=== PATIENT | female | born 1975 | race Two or more races ===

== ENCOUNTER 2024-10-24 01:30 | Emergency (ER) | payer MEDICAID ==
[~2024-10-24] VITALS: Ht 152.4 cm; Wt 77.3 kg
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
--- NOTE | 2024-10-24 03:24 | DVH ---
Examination: CS2 CLINICAL INDICATION: neck pain COMPARISON: None. CONTRAST USED: Intravenous. TECHNIQUE: The examination was performed obtaining 2 mm slices in the axial plane. Sagittal and 3D reconstructions were also obtained. Technique for this CT scan was done using principles of ALARA (A s Low As Reasonably Achievable). Multiplanar reconstructions were obtained. FINDINGS: Limited evaluation, due to beam hardening artifacts in the spinal canal at C6, C7 and T1 levels. The alignment of the cervical spine is maintained. Marginal degenerative osteophytes in the cervical vertebrae. Radiolucent area of approximate size 8 x 7 mm noted at the base of the dens process. The posterior elements are unremarkable. There is no fracture or subluxation. No destructive bony lesion is noted. The pre- and para-vertebral soft tissues are unremarkable. Atlanto-axial joint is within normal limits. C2-C3 level: Disc height is within normal limits, with posterocentral disc bulge (thickness up to ap proximately 2 mm) indenting the anterior thecal sac. There is no significant central canal or neural foraminal narrowing. The facet joints and ligamentum flavum are within normal limits. C3-C4 level: Disc height is within normal limits, with posterocentral disc bulge (thickness up to ap proximately 2 mm) indenting the anterior thecal sac. There is no significant central canal or neural foraminal narrowing. The facet joints and ligamentum flavum are within normal limits. C4-C5 level: Disc height is within normal limits, with posterocentral disc bulge (thickness up to ap proximately 2.8 mm) indenting the anterior thecal sac. There is no significant central canal or neur al foraminal narrowing. The facet joints and ligamentum flavum are within normal limits. C5-C6 level: Disc height is reduced, with posterocentral disc bulge (thickness up to approximately 2 .2 mm) indenting the anterior thecal sac. Vertebral osteophytes, causing mild bilateral neural irasema inal narrowing. There is no significant central canal narrowing. The facet joints and ligamentum fl avum are within normal limits. C6-C7 level: Disc height is within normal limits. The spinal canal cannot be commented upon, due to beam hardening artifacts within. The facet joints are within normal limits. C7-T1 level: Disc height is within normal limits. The spinal canal cannot be commented upon, due to beam hardening artifacts within. The facet joints are within normal limits. Note that detection of disc herniations is limited with CT, for which an MRI may be obtained if clini devonte indicated. IMPRESSION: 1. Limited evaluation, due to beam hardening artifacts in the spinal canal at C6, C7 and T1 levels. 2. No obvious fracture or dislocation in the cervical spine. 3. Mild cervical spondylosis, as described. 4. Radiolucent area of approximate size 8 x 7 mm noted at the base of the dens process. Advised fur ther evaluation with MRI cervical spine without contrast. Electronically Signed 10/24/2024 03:23 Juliette Faria
--- NOTE | 2024-10-24 03:24 | DVH ---
Examination: FAC2C CLINICAL INDICATION: facial injury COMPARISON: None. CONTRAST USED: None. TECHNIQUE: The examination was performed obtaining 2 mm slices in the axial plane. Sagittal and 3D r econstructions were also obtained. Technique for this CT scan was done using principles of ALARA (As Low As Reasonably Achievable). Multiplanar reconstructions were obtained. FINDINGS: Fracture of nasal bone bilaterally with adjacent soft tissue hematoma. Subcutaneous fat stranding noted in the right maxillary region. Both zygomatic arches appear normal without any fracture. All visualized paranasal sinuses show normal intact lawler. No evidence of any obvious collection seen within the paranasal sinuses. Subcentimetric mucous retention cyst noted in the right maxillary sinus. Bony nasal septum shows no evidence of fracture. Deviated nasal septum along with bony septal spur with convexity towards right. Mandible and maxillary alveolus show no evidence of fracture. Both orbits are normal. Orbital lawler are intact. Dental prostheses noted giving adjacent streak artifacts. IMPRESSION: 1. Fracture of nasal bone bilaterally with adjacent soft tissue hematoma. 2. Subcutaneous fat stranding noted in the right maxillary region. Electronically Signed 10/24/2024 03:23 Juliette Faria
--- NOTE | 2024-10-24 03:24 | DVH ---
Examination: HWOCT CLINICAL INDICATION:head injury COMPARISON: None. CONTRAST USED: None. TECHNIQUE: The examination was performed obtaining 5 mm slices without contrast. CT scan was done a ccording to ALARA (As Low as Reasonably Achievable). Multiplanar reconstructions were obtained. FINDINGS: SUPRATENTORIAL BRAIN: Cerebral Hemispheres: There is no midline shift or mass effect, intra- or extra-axial fluid collecti ons or hemorrhage. Periventricular White Matter/Basal Ganglia: No abnormal areas of altered attenuation within the gloria ventricular white matter or basal ganglia. POSTERIOR FOSSA: The brainstem is normal and the visualized cerebellar hemispheres are unremarkable. VENTRICULAR SYSTEM: The ventricular system is normal in size. There is no evidence of hydrocephalus or transependymal flow of cerebrospinal fluid. SKULL BASE AND PARASELLAR REGION: The skull base is normal with no parasellar masses or abnormalitie s identified. CALVARIUM AND SCALP REGION: Fracture of nasal bone bilaterally with adjacent soft tissue hematoma. PARANASAL SINUSES: No significant inflammatory changes are identified in the visualized paranasal si nuses. IMPRESSION: 1. No obvious intracranial injury or skull vault fracture. 2. Fracture of nasal bone bilaterally with adjacent soft tissue hematoma. Electronically Signed 10/24/2024 03:23 Juliette Faria
[2024-10-24] MEDS: TETANUS-DIPTH-ACEL PERTUSSIS 0.5ML SYR Tdap IM ONE (04:27)
[2024-10-24] MEDS: ACETAMINOPHEN 325 MG TAB PO ONE (04:38)
[2024-10-24] MEDS ORDERED: IBUP-1456 PO (04:45)
[2024-10-24] MEDS ORDERED: AMOX875T4 PO (04:45)
[2024-10-24] MEDS: cefTRIAXone SOD 1,000 MG VL IM ONE (05:19)
[2024-10-24 05:39] VITALS: BP 141/88; PULSE 89; RESP 20; TEMP 97.7; O2SAT 100
== END 2024-10-24 05:56 | disposition home or self-care (01) ==
LOC: ER 01:30
DX: S02.2XXA Fracture of nasal bones, initial encounter for closed fracture (principal); S01.81XA Laceration without foreign body of other part of head, initial encounter; I10 Essential (primary) hypertension; E78.5 Hyperlipidemia, unspecified; E11.9 Type 2 diabetes mellitus without complications; Y04.2XXA Assault by strike against or bumped into by another person, initial encounter; Y93.89 Activity, other specified; Y92.89 Other specified places as the place of occurrence of the external cause; Y99.8 Other external cause status
CPT/HCPCS: 12011; 70450; 70486; 72125; 90471; 90715; 96372; 99285; J0696